=== PATIENT | male | born 1955 | race Caucasian/White ===

== ENCOUNTER 2024-08-19 10:19 | Day surgery (SDC) | payer MEDICARE, BC ==
[~2024-08-19] VITALS: Ht 177.8 cm; Wt 81.6 kg
[~2024-08-19 10:19] MED LIST: BUPIVACAINE 0.5 % PF 150 MG/30 ML VIAL ONE; LIDOCAINE 1%-EPI 1:100,000 20 ML VIAL ONE
[2024-08-19] MEDS ORDERED: ACETAMINOPHEN 325 MG TABLET ONE (13:22)
[2024-08-19] MEDS: ACETAMINOPHEN 325 MG TABLET PO PRN (13:25)
[2024-08-19] MEDS ORDERED: FENTANYL PF 100MCG/2ML AMPUL ONE ×2 (13:36→14:30)
[2024-08-19] MEDS ORDERED: FAMOTIDINE/PF INJ 20 MG/2 ML VIAL IV ONE (13:36)
[2024-08-19] MEDS ORDERED: BUPIVACAINE 0.5 % PF 150 MG/30 ML VIAL ONE (13:50)
[2024-08-19] MEDS ORDERED: ONDANSETRON HCL/PF 4 MG/2 ML VIAL IVP PRN (14:30)
[2024-08-19] MEDS ORDERED: HYDROMORPHONE INJ 2 MG/ML DISP.SYRIN IV PRN (14:30)
== END 2024-08-19 19:00 | disposition home or self-care (01) ==
LOC: DS 10:19 → UNDOADMIN 14:34 → MED 14:34 → DS 19:00 → UNDODISIN 19:15
PROVIDERS: ATTEND Surgery
DX: K40.90 Unilateral inguinal hernia, without obstruction or gangrene, not specified as recurrent (principal); I10 Essential (primary) hypertension; E11.9 Type 2 diabetes mellitus without complications; Z79.899 Other long term (current) drug therapy; Z98.890 Other specified postprocedural states; Z88.8 Allergy status to other drugs, medicaments and biological substances
CPT/HCPCS: 49505; 82962 ×2; J0690; J3490 ×5; J1100; J2704; J3010 ×2; J1308; J2405; J7030; C1781; G0378